=== PATIENT | female | born 1990 | race Caucasian/White ===

== ENCOUNTER 2019-08-17 21:05 | Emergency (ER) | payer MEDICAID ==
[2019-08-17] MEDS ORDERED: Ondansetron 4 MG Tab.DIS PO ONE (21:29)
[2019-08-17] MEDS ORDERED: LORazepam 0.5 MG Tab PO ONE (21:29)
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
== END 2019-08-17 22:01 | disposition home or self-care (01) ==
LOC: JD.ED 21:05
DX: F43.0 Acute stress reaction (principal)
CPT/HCPCS: 99283; A9270

== ENCOUNTER 2019-08-22 00:25 | Emergency (ER) | payer MEDICAID ==
--- NOTE | 2019-08-22 02:39 | EDM.PDOC ---
ED HPI GENERAL MEDICAL PROBLEM - General Chief Complaint: Lower Extremity Injury/Pain Stated Complaint: [facility] Time Seen by Provider: 08/22/19 02:30 Source of Information: Reports: Patient History Limitations: Reports: Altered Mental Status - History of Present Illness INITIAL COMMENTS - FREE TEXT/NARRATIVE: 08/22/2019 03:35 I had to deal with another patient who was suffering from a stroke, and was unable to get in to see the patient until she had been here for about 2 hours. I found her sleeping on the gurney with her son beside her. The patient is arousable, but will not wake up and talk to me, despite repeatedly calling her name and shaking her. This is not simply being tired and sleepy - there is a distinct possibility that the patient is sedated. At this point, I have no choice but to let her sleep until she wakes up and can talk to us. 08/22/2019 05:05 We decided that the patient had been sleeping long enough, therefore a nurse and I turned the lights on in the patient's room, positioned her on the gurney and sat her up. She then woke up. She stated that no one has been in to check on her the entire time that she has been in the ED, and did not recall my earlier attempt at waking her up. The patient's nurse has been in her room on numerous occasions. The patient acknowledged that she took an Ativan that had been prescribed to her from this ED on 08/17/2019, around 21:00, prior to coming to the ED. I then attempted to find out what brought the patient to the ED. 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 She then asked why I was being so fing mean to her. When I told her that I was simply asking her routine question on the mechanism of her injury, she then became hostile, saying this was bullst, and fk you. I stepped out of the room for a few minutes to let her calm down, and when I returned, she was on her phone. She did not respond to a question, saying only that she was getting an assistant attorney general on the phone. Having found no medical emergency, I am going to discharge her. 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, Psychiatric History: Reports: Anxiety, Panic Attack - Past Surgical History HEENT Surgical History: Reports: Adenoidectomy, Tonsillectomy Female Surgical History: Reports: D&C Social & Family History - Tobacco Use Smoking Status *Q: Never Smoker - Caffeine Use Caffeine Use: Reports: None - Recreational Drug Use Recreational Drug Use: No - Living Situation & Occupation Living situation: Reports: with Family (Son), Other ([facility]) Occupation: Unemployed Review of Systems - Review of Systems Review Of Systems: Unable To Obtain Reason Not Obtained: Uncooperative ED EXAM, GENERAL - Physical Exam Exam: Not Obtained Reason Not Obtained: Uncooperative Course - Vital Signs Last Recorded V/S: Last Vital Signs Temp 36.5 C 08/22/19 00:32 Pulse 135 H 08/22/19 00:32 Resp 16 08/22/19 00:32 BP 126/70 08/22/19 00:32 Pulse Ox 97 08/22/19 00:32 Departure - Departure Time of Disposition: 05:13 Disposition: Home, Self-Care 01 Condition: Good Clinical Impression: Right knee pain, Benzodiazepine intoxication - Discharge Information *PRESCRIPTION DRUG MONITORING PROGRAM REVIEWED*: No *COPY OF PRESCRIPTION DRUG MONITORING REPORT IN PATIENT JIMMIE: No Instructions: Knee Pain, Adult Referrals: PCP,None [Primary Care Provider] - Pavel Kidd MD [Physician] - Forms: ED Department Discharge Additional Instructions: You were seen in the emergency room for right knee pain sustained while performing a gymnastics maneuver. You were found to be excessively sedated by Ativan. You did not cooperate with a history or allow a physical examination. If your knee continues to bother you, please follow-up with the Orthopedic Surgeon Dr. Pavel Kidd. If any other problems, please do not hesitate to return to the ER. Sepsis Event Note - Evaluation Sepsis Screening Result: No Definite Risk - Focused Exam Vital Signs: Vital Signs Temp Pulse Resp BP Pulse Ox 08/22/19 00:32 36.5 C 135 H 16 126/70 97 Date Exam was Performed: 08/22/19 Time Exam was Performed: 05:31
== END 2019-08-22 05:43 | disposition home or self-care (01) ==
LOC: JD.ED 00:25
DX: M25.561 Pain in right knee (principal); T42.4X5A Adverse effect of benzodiazepines, initial encounter; Y93.43 Activity, gymnastics
CPT/HCPCS: 99283

== ENCOUNTER 2019-08-25 10:31 | Emergency (ER) | payer MEDICAID ==
[2019-08-25] MEDS ORDERED: Ondansetron 4 MG Tab.DIS PO ONE (11:25)
[2019-08-25] MEDS ORDERED: LORazepam 1 MG Tab PO ONE (11:25)
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
== END 2019-08-25 12:06 | disposition home or self-care (01) ==
LOC: JD.ED 10:31
DX: F41.9 Anxiety disorder, unspecified (principal)
CPT/HCPCS: 99283; A9270